=== PATIENT | female | born 1950 | race Caucasian/White ===

== ENCOUNTER 2018-12-22 17:20 | Emergency (ER) | payer MEDICARE ==
[~2018-12-22] VITALS: Ht 152.4 cm; Wt 75.4 kg
[2018-12-22 17:26] VITALS: BP 130/90
--- NOTE | 2018-12-22 17:38 | NUR ---
TASK RN: Cassia CIFUENTES, at bedside to evaluate pt.
--- NOTE | 2018-12-22 17:40 | NUR ---
Idalia chu in [facility] - 12/22/18 at 1803 by TRACEY report to break SAMUEL Escobedo.
[2018-12-22] MEDS ORDERED: LIDOCAINE-MPF 1%, 5ML ONE ×2 (17:43→18:06)
[2018-12-22] MEDS ORDERED: LIDOCAINE-MPF 1%, 5ML INFIL ONE (18:00)
[2018-12-22] MEDS ORDERED: DIPH,PERTUSS(ACELL),TET VAC/PF 0.5 ML IM-VACC ONE ×2 (18:00→18:16)
--- NOTE | 2018-12-22 18:08 | NUR ---
PROCEDURE START TIME FOR JAW REDUCTION WITH PROCEDURAL SEDATION. PLEASE SEE PAPER CHARTING FOR ALL INTRA AND POST PROCEDURE VITAL SIGNS AND MERCHANDISE DISPLAYER.
--- NOTE | 2018-12-22 18:11 | NUR ---
TASK RN: EDT at bedside to irrigate wound.
--- NOTE | 2018-12-22 18:22 | NUR ---
TASK RN: Cassia CIFUENTES, at bedside for lac repair.
--- NOTE | 2018-12-22 18:24 | NUR ---
REPORT RECEIVED FROM SAMUEL HILL
--- NOTE | 2018-12-22 18:49 | NUR ---
report to break SAMUEL ramirez
[2018-12-22] MEDS ORDERED: BACITRACIN ZINC OINT 500U/GM, 0.9 GM ONE (18:56)
--- NOTE | 2018-12-22 19:06 | NUR ---
Pt's lac dressed, alumiform splint placed, and pt understands directions for wound care.
--- NOTE | 2018-12-22 19:33 | NUR ---
TASK RN: Patient/Caregiver given discharge instructions and they have confirmed that they understand the instructions. Patient ambulatory with steady gait.
== END 2018-12-22 19:34 | disposition home or self-care (01) ==
LOC: ED 17:44
DX: S61.211A Laceration without foreign body of left index finger without damage to nail, initial encounter (principal); I10 Essential (primary) hypertension; E78.00 Pure hypercholesterolemia, unspecified; E07.9 Disorder of thyroid, unspecified; F17.200 Nicotine dependence, unspecified, uncomplicated; W01.0XXA Fall on same level from slipping, tripping and stumbling without subsequent striking against object, initial encounter; Y93.89 Activity, other specified; Y92.098 Other place in other non-institutional residence as the place of occurrence of the external cause; Y99.8 Other external cause status
CPT/HCPCS: 12001; 90471; 90715; 99283

== ENCOUNTER → 2020-07-22 | Outpatient (CLI) | payer MEDICARE | END | disposition home or self-care (01) | LOC: CFH 13:15 | PROVIDERS: ATTEND Internal Medicine | DX: J44.9 Chronic obstructive pulmonary disease, unspecified (principal); I31.3 Pericardial effusion (noninflammatory) | CPT/HCPCS: 71250 ==

== ENCOUNTER → 2020-12-14 | Outpatient (CLI) | payer MEDICARE | END | disposition home or self-care (01) | LOC: CFH 08:02 | PROVIDERS: ATTEND Student in an Organized Health Care Education/Training Program | DX: Z12.2 Encounter for screening for malignant neoplasm of respiratory organs (principal); C79.51 Secondary malignant neoplasm of bone; M25.511 Pain in right shoulder; M89.8X1 Other specified disorders of bone, shoulder; F17.210 Nicotine dependence, cigarettes, uncomplicated; M19.011 Primary osteoarthritis, right shoulder; J43.9 Emphysema, unspecified; I25.10 Atherosclerotic heart disease of native coronary artery without angina pectoris; I70.0 Atherosclerosis of aorta; M51.34 Other intervertebral disc degeneration, thoracic region | CPT/HCPCS: 71271 ==

== ENCOUNTER 2021-01-26 05:49 | Day surgery (SDC) | payer MEDICARE ==
[~2021-01-26] VITALS: Ht 152.4 cm; Wt 61.0 kg
[2021-01-26 06:43] VITALS: BP 135/87
[2021-01-26] MEDS ORDERED: PANT40TA6 PO (06:50)
[2021-01-26] MEDS ORDERED: LEVO125T5 PO (06:50)
[2021-01-26] MEDS ORDERED: PARO40TA61 PO (06:50)
[2021-01-26] MEDS ORDERED: SODIUM CHLORIDE 0.9% 1,000 ML IV SCH (07:00)
[2021-01-26] MEDS ORDERED: PARO20TA98 PO (07:13)
[2021-01-26] MEDS ORDERED: LISI1TAB39 PO (07:13)
[2021-01-26] MEDS ORDERED: BUSP10TA PO (07:13)
[2021-01-26] MEDS ORDERED: LEVO150T5 PO (07:13)
[2021-01-26] MEDS ORDERED: FENTANYL PF 100 MCG/2ML ONE (08:11)
[2021-01-26] MEDS ORDERED: NALOXONE 1 MG/ML, 2ML ONE (08:12)
[2021-01-26] MEDS ORDERED: FLUMAZENIL 0.1 MG/1 ML, 5ML ONE (08:12)
[2021-01-26] MEDS ORDERED: MIDAZOLAM 1 MG/ML, 5ML ONE (08:12)
== END 2021-01-26 10:20 | disposition home or self-care (01) ==
LOC: OUT 05:49
PROVIDERS: ATTEND Student in an Organized Health Care Education/Training Program
DX: R22.2 Localized swelling, mass and lump, trunk (principal); C73 Malignant neoplasm of thyroid gland; I10 Essential (primary) hypertension; I25.2 Old myocardial infarction; J44.9 Chronic obstructive pulmonary disease, unspecified; E89.0 Postprocedural hypothyroidism; M19.011 Primary osteoarthritis, right shoulder; F17.210 Nicotine dependence, cigarettes, uncomplicated; Z79.890 Hormone replacement therapy; Z79.899 Other long term (current) drug therapy
CPT/HCPCS: 20220; 77012; 88305; 99156; 99157; J2250; J3010; J7030; J2310